=== PATIENT | male | born 1985 | race Caucasian/White ===

== ENCOUNTER 2018-04-17 12:23 | Emergency (ER) | payer BC ==
[~2018-04-17] VITALS: Ht 185.4 cm; Wt 84.0 kg
[~2018-04-17 12:23] MED LIST: ZANTAC150 MG PO
[2018-04-17 13:10] LABS: HEMATOCRIT 45.2 % (38.0-50.0); HEMOGLOBIN 15.9 G/DL (12.5-16.6); MCH 31.7 PG (29.0-34.0); MCHC 35.2 G/DL (30.0-36.0); MCV 90.2 FL (86-99); PLATELET COUNT 230 K/uL (156-360); RBC DIS.WIDTH-CV 12.7 % (11.8-14.6); RBC DIS.WIDTH-SD 41.9 % (39-53); RED BLOOD COUNT 5.01 M/uL (4.00-5.50); WHITE BLOOD COUNT 11.4 K/uL (4.1-10.2)
[2018-04-17 13:19] LABS: CHLORIDE 105 mEq/L (99-109); POTASSIUM 3.8 mEq/L (3.7-5.4); SODIUM 139 mEq/L (136-147)
[2018-04-17 13:20] LABS: GLUCOSE 109 mg/dL (70-99)
[2018-04-17 13:24] LABS: GFR ESTIMATE (CALCULATED) > 59 mL/min/ (58.99-99999)
[2018-04-17 13:25] LABS: UREA NITROGEN (BUN) 8 mg/dL (9-23)
[2018-04-17 13:31] LABS: TROP-I INTERPRETATION NEGATIVE; TROPONIN-I < 0.01 ng/mL (0.0-0.30)
[2018-04-17 16:38] LABS: TROP-I INTERPRETATION NEGATIVE; TROPONIN-I < 0.01 ng/mL (0.0-0.30)
[2018-04-17 16:53] VITALS: BP 132/73
== END 2018-04-17 16:54 | disposition home or self-care (01) ==
LOC: EME 12:23
PROVIDERS: Physician Assistant
DX: R07.9 Chest pain, unspecified (principal); M79.602 Pain in left arm; I45.10 Unspecified right bundle-branch block; Z82.41 Family history of sudden cardiac death; F17.210 Nicotine dependence, cigarettes, uncomplicated; Z63.4 Disappearance and death of family member; Z63.5 Disruption of family by separation and divorce
CPT/HCPCS: 71046; 80048; 84484; 85027; 93005; 99281; 99284